=== PATIENT | male | born 1950 | race Caucasian/White ===

== ENCOUNTER → 2023-03-28 | Outpatient (CLI) | payer MEDICARE, OTHER ==
[~2023-03-28] MED LIST: iohexol 350 MG/ML 50ML vial IV ONE; iohexol 350MG/ML 100ml bottle IV ONE
[2023-03-28 08:59] LABS: ALBUMIN 3.4 G/DL (3.4-5.0); ANION GAP 6 (8-16); BLOOD UREA NITROGEN 19 MG/DL (7-18); BUN/CREATININE RATIO 20.7 (10.0-20.0); CALCIUM 9.6 MG/DL (8.5-10.1); CHLORIDE 104 MMOL/L (99-107); CREATININE 0.92 MG/DL (0.60-1.10); GLUCOSE 89 MG/DL (70-104); POTASSIUM 3.9 MMOL/L (3.5-5.1); SODIUM 140 MMOL/L (135-145); TOTAL CARBON DIOXIDE 30.4 MMOL/L (24-32); eGFR 81 ML/MIN
== END | disposition home or self-care (01) ==
LOC: RAD 08:27
PROVIDERS: ATTEND Internal Medicine Interventional Cardiology
DX: I70.298 Other atherosclerosis of native arteries of extremities, other extremity (principal); I70.213 Atherosclerosis of native arteries of extremities with intermittent claudication, bilateral legs; E78.5 Hyperlipidemia, unspecified
CPT/HCPCS: 36415; 75635; 80048; J3490; Q9967